=== PATIENT | female | born 1985 | race Caucasian/White ===

== ENCOUNTER 2020-09-05 14:30 | Emergency (ER) | payer OTHER, SELFPAY ==
--- NOTE | ~2020-09-05 | XR_ITS ---
EXAMINATION: XR chest 1V portable EXAM DATE: 09/05/2020 14:46 INDICATION: Chest burning sensation. TECHNIQUE: Portable AP frontal chest x-ray was obtained. There is no prior study for comparison. FINDINGS: The lungs are clear. There are no pleural effusions. The cardiomediastinal silhouette is within normal limits. There is no pneumothorax suspected. The bones and soft tissues are unremarkab le. IMPRESSION: No acute cardiopulmonary findings. Reviewed, dictated and finalized at location A.
[2020-09-05 14:33] VITALS: BP 103/68; PULSE 68; RESP 16; TEMP 36.8; O2SAT 99
--- NOTE | 2020-09-05 14:56 | ECG_ITS ---
Measurements Intervals [place] Rate: 53 P: 62 DE: 152 QRS: -26 QRSD: 102 T: 28 QT: 450 QTc: 425 Interpretive Statements SINUS BRADYCARDIA DELAYED PRECORDIAL R/S TRANSITION BASELINE WANDER- V4 BORDERLINE ECG Electronically Signed On 09-05-2020 16:51:45 CDT by Brandon Vital D.O.
--- NOTE | 2020-09-05 15:26 | ED.URI ---
HPI - URI/Sore Throat General Chief Complaint: Upper Respiratory Infection Stated Complaint: covid+, buring in chest/ [place] Time Seen by Provider: 09/05/20 14:40 Source: patient Mode of arrival: ambulatory Limitations: no limitations History of Present Illness HPI Narrative: This is a 35 year old female that presents to the ER for chest tightness that has been present over the last week. Reports she was diagnosed with covid one week ago. Reports headache, burning in the chest and nausea. Reports the burning in her chest is worse at night. Denies fever, cough, shortness of breath, or lower extremity edema. Related Data Allergies Allergy/AdvReac Type Severity Reaction Status Date / Time loracarbef Allergy Unknown Unknown Verified 09/05/20 14:32 sulfanilamide Allergy Unknown Unknown Verified 09/05/20 14:32 Review of Systems Review of Systems: Narrative: CONSTITUTIONAL: Denies fever CARDIOVASCULAR: Reports chest pain. Denies edema. RESPIRATORY: Denies cough or dyspnea. GASTROINTESTINAL: Reports nausea. Denies vomiting GENITOURINARY: Denies dysuria NEUROLOGIC: Reports headache All systems reviewed & are unremarkable except as noted in HPI and below PMFSH Past Medical History Medical History External hemorrhoid Hypothyroidism, unspecified Thrombosed external hemorrhoid Thyroid nodule Family History Family History Grandparent Hypertension Family history of malignant neoplasm of breast Family history of coronary artery disease Family history of malignant neoplasm of thyroid Family history of malignant neoplasm of ovary Diabetes mellitus Social History Social History Smoking status: Never smoker Alcohol intake: current Gender identity (if verbalized by the patient): Female Exam Narrative: Exam Narrative: GENERAL: Well-appearing, well-nourished, and in no acute distress. HEAD: Normocephalic, atraumatic. EYES: PERRLA and EOMI. ENT: Nares clear, no rhinorrhea or epistaxis. Mucous membranes moist. Oropharynx without tonsillar hypertrophy exudate or other lesions. Bilateral TMs pearly chavez non-bulging NECK: Supple. No adenopathy or masses. CHEST: Clear to auscultation. No respiratory distress. No wheezes rales or rhonchi HEART: Regular rate and rhythm. No murmur heard. Normal peripheral pulses. EXTREMITIES: Normal range of motion. No edema. SKIN: Warm, dry, no rash. NEURO: No focal deficits. Alert and oriented x3. CN II-XII grossly intact PSYCH: Normal mood and affect Course Vital Signs Vital signs: Vital Signs Temperature 98.3 F 09/05/20 14:33 Pulse Rate 68 09/05/20 14:33 Respiratory Rate 16 09/05/20 14:33 Blood Pressure 103/68 09/05/20 14:33 Pulse Oximetry 99 09/05/20 14:33 Temperature 98.3 F 09/05/20 14:33 Pulse Rate 68 09/05/20 14:33 Respiratory Rate 16 09/05/20 14:33 Blood Pressure 103/68 09/05/20 14:33 Pulse Oximetry 99 09/05/20 14:33 MDM - URI/Sore Throat MDM Narrative Medical decision making narrative: Patient presents to the emergency department for chest pain ongoing since testing positive for coronavirus 1 week ago. She denies any shortness of breath. Oxygen saturation is remained normal on room air. She is afebrile and nontoxic-appearing. Vitals are stable. CBC and metabolic panel without concerning findings. Baseline troponin is negative and EKG is without concerning changes. Chest x-ray is without acute cardiopulmonary abnormality. Patient was updated on case findings. Her heart score is a 0. She is stable and felt appropriate for further outpatient evaluation. She was given warnings to return to the ER Lab Data Attestation: I reviewed the patient's lab results. Result diagrams: 09/05/20 15:48 09/05/20 15:48 Labs: Lab Results 09/05/20 09/05/20 09/05/20 Range/Units 15:48 15:4
[2020-09-05 15:53] LABS: Basophils Percent Auto 0.5 % (0.2-1.2); Eosinophils Absolute Auto 0.1 K/mm3 (0-0.3); Eosinophils Percent Auto 1.5 % (0-4.4); Hematocrit 35.5 % (37.0-47.0); Hemoglobin 11.8 g/dL (12.0-15.0); Immature Granulocyte Absolute 0.02 K/mm3 (0.00-0.031); Immature Granulocyte Percent A 0.5 % (0-0.5); Lymphocytes Percent Auto 31.7 % (18.3-44.2); Mean Corpuscular HGB Conc 33.2 g/dl (32-36); Mean Corpuscular Hemoglobin 30.7 pg (26-34); Mean Corpuscular Volume 92.4 fl (80-100); Mean Platelet Volume 9.5 fl (7.4-10.4); Monocytes Absolute Auto 0.2 K/mm3 (0.1-0.6); Monocytes Percent Auto 4.4 % (2.6-8.5); Neutrophils Absolute Auto 2.5 K/mm3 (1.3-6.7); Neutrophils Percent Auto 61.4 % (45.5-73.1); Platelet Count Result 199 k/mm3 (150-375); Red Blood Count 3.84 M/mm3 (4.2-5.4); Red Cell Distribution Width 11.3 % (11.5-14.5); White Blood Count 4.1 K/mm3 (4.5-10.0)
[2020-09-05 16:02] LABS: INR 1.1; Prothrombin Time 14.3 Seconds (11.1-14.7)
[2020-09-05 16:03] LABS: Partial Thromboplastin Time 30.5 SECONDS (22.3-36.8)
[2020-09-05 16:19] LABS: Troponin I < 0.012 ng/mL (0.000-0.034)
[2020-09-05] MEDS: diphenhydrAMINE HCl INJ 50 MG/ML VIAL 25 MG IV PUSH (16:20)
[2020-09-05] MEDS: FAMOTIDINE 20 MG/2 ML VIAL IV PUSH (16:20)
[2020-09-05] MEDS: METOCLOPRAMIDE HCL INJ 10 MG/2 ML VIAL IV PUSH (16:20)
[2020-09-05 16:31] LABS: Alanine Aminotransferase 28 U/L (4-35); Albumin Level 4.3 g/dL (3.5-5.1); Alkaline Phosphatase 38 U/L (38-126); Anion Gap 3 mmol/L (8-16); Aspartate Amino Transferase 31 U/L (14-36); Bilirubin,Total 0.3 mg/dL (0.2-1.3); Blood Urea Nitrogen 5 mg/dL (7-17); Calcium 9.1 mg/dL (8.4-10.2); Carbon Dioxide 31 mmol/L (22-30); Chloride 105 mmol/L (98-107); Estimated CRCL calculation 93 ml/min; Estimated Glomerular Filt Rate > 60; Glucose 88 mg/dL (65-105); Potassium 4.2 mmol/L (3.4-5.0); Sodium 139 mmol/L (137-145)
[2020-09-05 16:47] LABS: Lactate Dehydrogenase 230 U/L (313-618)
[2020-09-05 17:55] VITALS: BP 107/71; PULSE 68; RESP 17; O2SAT 100
== END 2020-09-05 17:56 | disposition home or self-care (01) ==
PROVIDERS: Physician Assistant; Emergency Provider Emergency Medicine; PCP Family Medicine
DX: R07.9 Chest pain, unspecified (principal); U07.1 COVID-19; E03.9 Hypothyroidism, unspecified
CPT/HCPCS: 36415; 71045; 80053; 82728; 83615; 84484; 85025; 85610; 85730; 93005; 96365; 96375; 99284; J0131; J1200; J2765

== ENCOUNTER 2021-10-10 18:15 | Emergency (ER) | payer OTHER, SELFPAY ==
--- NOTE | ~2021-10-10 | XR_ITS ---
EXAM: XR abdomen/kub 1V DATE: 10/10/2021 19:12 HISTORY: bloating and back pain . COMPARISON: None available. FINDINGS: Clear lung bases. Normal bowel gas pattern. No organomegaly. No abnormal abdominal calcifi cation. Regional bones and soft tissues normal for age. IMPRESSION: No radiographic evidence of ileus or obstruction. Reviewed, dictated and finalized at location K.
[2021-10-10 18:16] VITALS: BP 112/71; PULSE 75; RESP 16; TEMP 36.9; O2SAT 100
[2021-10-10 18:55] LABS: Basophils Percent Auto 0.3 % (0.2-1.2); Eosinophils Absolute Auto 0.1 K/mm3 (0-0.3); Eosinophils Percent Auto 1.5 % (0-4.4); Hematocrit 37.8 % (37.0-47.0); Hemoglobin 12.8 g/dL (12.0-15.0); Immature Granulocyte Absolute 0.02 K/mm3 (0.00-0.031); Immature Granulocyte Percent A 0.3 % (0-0.5); Lymphocytes Absolute Auto 0.68 K/mm3 (0.9-3.2); Lymphocytes Percent Auto 10.4 % (18.3-44.2); Mean Corpuscular HGB Conc 33.9 g/dl (32-36); Mean Corpuscular Hemoglobin 31.2 pg (26-34); Mean Corpuscular Volume 92.2 fl (80-100); Mean Platelet Volume 9.7 fl (7.4-10.4); Monocytes Absolute Auto 0.4 K/mm3 (0.1-0.6); Monocytes Percent Auto 6.4 % (2.6-8.5); Neutrophils Absolute Auto 5.3 K/mm3 (1.3-6.7); Neutrophils Percent Auto 81.1 % (45.5-73.1); Platelet Count Result 216 k/mm3 (150-375); Red Cell Distribution Width 11.6 % (11.5-14.5); White Blood Count 6.6 K/mm3 (4.5-10.0)
[2021-10-10 19:06] LABS: Alanine Aminotransferase 17 U/L (6-35); Albumin Level 4.9 g/dL (3.5-5.1); Alkaline Phosphatase 43 U/L (38-126); Anion Gap 5 mmol/L (8-16); Aspartate Amino Transferase 25 U/L (14-36); Bilirubin,Total 1.1 mg/dL (0.2-1.3); Blood Urea Nitrogen 9 mg/dL (7-17); Calcium 8.9 mg/dL (8.4-10.2); Carbon Dioxide 26 mmol/L (22-30); Chloride 107 mmol/L (98-107); Estimated CRCL calculation 95 ml/min; Estimated Glomerular Filt Rate > 60; Glucose 98 mg/dL (65-110); Lipase 74 U/L (23-300); Potassium 4.2 mmol/L (3.4-5.0); Sodium 138 mmol/L (137-145)
[2021-10-10 19:27] LABS: Appearance Urine Clear (Clear); Bilirubin Urine Negative (Negative); Color Urine Yellow (Yellow); Glucose Urine UA Negative (Negative); Ketones Urine Trace mg/dL (Negative); Leukocyte Esterase Ur 1+ LEU/UL (Negative); Nitrate Urine Negative (Negative); Protein Urine Negative (Negative); Specific Grav Ur 1.015 (1.001-1.035); Urobilinogen Urine 0.2 mg/dL (<2.0); pH Urine 6.5 (5.0-9.0)
[2021-10-10 19:35] LABS: Add Urine Microscopic? YES; Blood Urine Trace-Intact (Negative)
[2021-10-10 19:36] LABS: Bacteria Urine Trace /hpf; Mucus Urine Rare /lpf; Squamous Epithelial Cell Urine Rare /hpf (Few)
--- NOTE | 2021-10-10 20:35 | ED.GENADULT ---
HPI - General Adult General Chief complaint: Abdominal Pain Stated complaint: lower abd/back pain Time Seen by Provider: 10/10/21 18:23 History of Present Illness HPI narrative: Patient is a 36-year-old female who presents ER with upper abdominal pain. Ongoing over the last couple weeks. She feels bloating will hear air/fluid moving in her abdomen. Majority of discomfort is in the left upper quadrant. No belching or increased flatus. No constipation or diarrhea. Denies fevers or chills or sweats. Discomfort worsened tonight after eating. Occasionally radiates into her back. No urinary frequency urgency or dysuria. She is without hematuria. Has not found any alleviating factors. Related Data Allergies Allergy/AdvReac Type Severity Reaction Status Date / Time loracarbef Allergy Unknown Unknown Verified 10/10/21 18:22 sulfanilamide Allergy Unknown Unknown Verified 10/10/21 18:22 Review of Systems Review of Systems: All systems reviewed & are unremarkable except as noted in HPI and below Constitutional: Constitutional: Denies chills, Denies fatigue and Denies fever(s) ENT: Denies nasal congestion and Denies sore throat Cardiovascular: Cardiovascular: Denies chest pain and Denies rapid heart rate Respiratory: Respiratory: Denies cough and Denies dyspnea Gastrointestinal: Gastrointestinal: Reports abdominal pain, Reports bloating, Denies constipation, Denies diarrhea, Reports nausea and Denies vomiting Genitourinary: Genitourinary: Denies hematuria, Denies nocturia and Denies dysuria PMFSH Past Medical History Medical History External hemorrhoid Hypothyroidism, unspecified Thrombosed external hemorrhoid Thyroid nodule Family History Family History Grandparent Hypertension Family history of malignant neoplasm of breast Family history of coronary artery disease Family history of malignant neoplasm of thyroid Family history of malignant neoplasm of ovary Diabetes mellitus Social History Social History Smoking status: Never smoker Alcohol intake: current Gender identity (if verbalized by the patient): Female Exam Narrative: GENERAL: Well-appearing, well-nourished, and in no acute distress. HEAD: Normocephalic, atraumatic. ENT: Mucous membranes moist. CHEST: Clear to auscultation. No respiratory distress. HEART: Regular rate and rhythm. Normal peripheral pulses. ABDOMEN: Soft, nontender, nondistended, normal active bowel sounds. EXTREMITIES: Normal range of motion. No edema. SKIN: Warm, dry, no rash. NEURO: Alert and oriented x3. PSYCH: Normal mood and affect. Course Course Emergency Course: Unremarkable evaluation. Discharge home on reflux medication for possible gastritis versus ulceration. She has follow-up with PCP tomorrow. Vital Signs Vital signs: Vital Signs Temperature 98.4 F 10/10/21 18:16 Pulse Rate 75 10/10/21 18:16 Respiratory Rate 16 10/10/21 18:16 Blood Pressure 112/71 10/10/21 18:16 Pulse Oximetry 100 10/10/21 18:16 Oxygen Delivery Room Air 10/10/21 18:16 Temperature 98.4 F 10/10/21 18:16 Pulse Rate 75 10/10/21 18:16 Respiratory Rate 16 10/10/21 18:16 Blood Pressure 112/71 10/10/21 18:16 Pulse Oximetry 100 10/10/21 18:16 Oxygen Delivery Room Air 10/10/21 18:16 Medical Decision Making Vital Signs Vital Signs: Vital Signs Temperature 98.4 F 10/10/21 18:16 Pulse Rate 75 10/10/21 18:16 Respiratory Rate 16 10/10/21 18:16 Blood Pressure 112/71 10/10/21 18:16 Pulse Oximetry 100 10/10/21 18:16 Oxygen Delivery Room Air 10/10/21 18:16 Temperature 98.4 F 10/10/21 18:16 Pulse Rate 75 10/10/21 18:16 Respiratory Rate 16 10/10/21 18:16 Blood Pressure 112/71 10/10/21 18:16 Pulse Oximetry 100 10/10/21 18:16 Oxygen Delivery Room Air 10/10/21 18
[2021-10-10 21:07] VITALS: BP 101/66; PULSE 60; RESP 16; O2SAT 99
== END 2021-10-10 21:09 | disposition home or self-care (01) ==
PROVIDERS: Emergency Provider Emergency Medicine; PCP Family Medicine
DX: R10.12 Left upper quadrant pain (principal); K21.9 Gastro-esophageal reflux disease without esophagitis; E03.9 Hypothyroidism, unspecified
CPT/HCPCS: 36415; 74018; 80053; 81001; 81025; 83690; 85025; 99283

== ENCOUNTER → 2021-10-18 10:02 | Outpatient (CLI) | payer OTHER, SELFPAY ==
--- NOTE | ~2021-10-18 | US_ITS ---
EXAMINATION: US abdomen complete DATE: 10/18/2021 10:21 INDICATION: Unspecified abdominal pain TECHNIQUE: Multiple grayscale and Doppler ultrasound images of the abdomen were obtained. COMPARISON: 06/17/2009 FINDINGS: The head, body, and tail of the pancreas are normal. The liver is normal with normal echoge nicity and echotexture. No surface nodularity. Normal hepatopetal flow in the main portal vein. The n ormal common bile duct measures 3 mm. The visualized portions of the aorta and inferior vena cava are normal. The right kidney measures 11.3 x 4.1 x 5.0 cm. The left kidney measures 12.8 x 4.7 x 5.5 cm. The kidn eys demonstrate normal parenchymal echogenicity. There is no hydronephrosis. The spleen is normal in appearance and measures 11.3 cm. IMPRESSION: 1. No sonographic correlate for the patient's symptoms. Reviewed, dictated and finalized at location A.
== END ==
PROVIDERS: PCP Family Medicine; Visit Provider Nurse Practitioner Family
DX: R10.9 Unspecified abdominal pain (principal)
CPT/HCPCS: 76700

== ENCOUNTER 2022-10-20 10:54 | Outpatient (CLI) | payer OTHER, SELFPAY ==
--- NOTE | ~2022-10-20 | MMUS_ITS ---
EXAMINATION: MM diagnostic jeffy BI w christi, US breast BI complete HISTORY: Right lower inner quadrant breast lump TECHNIQUE: Bilateral full field and spot ML, MLO and CC 3-D tomosynthesis images were performed and s ynthetic 2-D images were generated. CAD analysis was submitted and interpreted. High resolution bilat eral complete breast ultrasound examination including all 4 quadrants and subareolar areas was perfor med. COMPARISON: None BREAST PARENCHYMAL COMPOSITION: The breasts are extremely dense, which lowers the sensitivity of mamm ography. FINDINGS: MAMMOGRAPHIC FINDINGS: There is asymmetric increased density in the lower inner quadrant of the right breast at the area of clinical complaint of breast lump. A circumscribed approximately 3 mm opacity is suggested at the posterior margin of the left breast la terally on MLO view. Otherwise no focal mass lesion or architectural distortion is noted. No malignant calcification, skin thickening or retraction of either breast. Due to the very dense stroma may obscure masses in either breast and mammographic asymmetry asymmetry , complete bilateral breast ultrasound examination was performed. ULTRASOUND: Right breast: 4:00 4 cm from nipple at area of palpable abnormality: Circumscribed 3 x 2.7 x 3 mm sonolucency witho ut internal vascularity or posterior shadowing, consistent with simple cyst 9:00 near nipple: 2.4 x 2.9 x 2.7 mm sonolucency without internal vascularity or posterior shadowing, consistent with cyst Left breast: No suspicious solid mass lesion, cyst or suspicious shadowing is detected. IMPRESSION: 1. Benign findings; no mammographic evidence of malignancy 2. Routine mammographic screening is recommended BI-RADS Category 2: Benign finding(s). Reviewed, dictated and finalized at location C. IMPRESSION: 1. Benign findings; no mammographic evidence of malignancy 2. Routine mammographic screening is recommended BI-RADS Category 2: Benign finding(s).
== END 2022-10-20 10:55 | disposition home or self-care (01) ==
PROVIDERS: PCP Family Medicine; Visit Provider Obstetrics & Gynecology
DX: N63.14 Unspecified lump in the right breast, lower inner quadrant (principal)
CPT/HCPCS: 76641; 77062; 77066; G0279